=== PATIENT | male | born 1955 | race Caucasian/White ===

== ENCOUNTER 2018-11-19 05:39 | Inpatient (IN) ==
[2018-11-13 10:52] LABS: Basophils # 0.1 10*3/uL (0.0-0.2); Basophils % 0.7 % (0.0-0.8); Eosinophils # 0.2 10*3/uL (0.0-0.87); Eosinophils % 3.2 % (0.00-10.9); Hematocrit 48.1 VOL% (42.0-52.0); Immature Granulocytes % 0.3 %; Immature Granulocytes Absolute 0.02 #; Lymphocytes # 2.2 10*3/uL (1.4-4.0); Lymphocytes % 29.2 % (21.2-54.2); Mean Corpuscular HGB Conc 33.3 GM/DL (32-36); Mean Corpuscular Hemoglobin 30 PG (27-34); Mean Corpuscular Volume 90.4 FL (87-102); Mean Platelet Volume 9.6 FL (9.6-12.0); Monocytes # 0.7 10*3/uL (0.11-0.8); Monocytes % 9.4 % (1.7-12.7); Neutrophils # 4.3 10*3/uL (1.4-7.4); Neutrophils % 57.2 % (38.7-73.9); Platelet Count 202 T/CUMM (130-400); Red Blood Count 5.32 MC/CUMM (3.8-5.5); Red Cell Distribution Width 13.4 % (9.3-17.3); White Blood Count 7.4 T/CUMM (4-12)
[2018-11-13 11:03] LABS: PT Patient Result 10.7 SECS; Partial Thromboplastin Time 24.8 SECS (0-40)
[2018-11-13 11:07] LABS: Apearance,Urine Slightly Hazy (Clear); Bilirubin,Urine Negative (Negative); Blood, Urine Negative (Negative); Glucose,Urine (UA) Negative (Negative); Ketones,Urine Negative (Negative); Nitrite,Urine Negative (Negative); Protein,Urine Negative; RBC,Urine <1 /HPF (0-4); Squamous Epithelial Cell,Urine Occasional /HPF (0-10); Urine Color Yellow (Yellow); Urine Urobilinogen < 2.0 EU/DL (0.2-1.0); WBC,Urine 1 /HPF (0-6)
[2018-11-13 11:30] LABS: Albumin 3.9 G/DL (3.4-5.0); Bilirubin,Total 0.8 MG/DL (0.2-1.0); Calcium 9.1 MG/DL (8.5-10.1); Osmolality,Calculated 278.5 MOS/KG (273-304); Potassium 3.9 MMOL/L (3.5-5.1); Total Protein 7.1 G/DL (6.4-8.3)
[2018-11-19] MEDS ORDERED: FAMOTIDINE 20 MG TABLET PO ONE (05:52)
[2018-11-19] MEDS ORDERED: VANCOMYCIN INJ 1,000 MG in SODIUM CHLORIDE 0.9% 250 ML IV ONE (06:00)
[2018-11-19] MEDS ORDERED: ceFAZolin 2,000 MG in PREMIX 1 EACH IV ONE (06:00)
[2018-11-19] MEDS ORDERED: LACTATED RINGERS 1,000 ML IV SCH (06:00)
[2018-11-19] MEDS ORDERED: FAMOTIDINE 20 MG TABLET ONE (06:09)
[2018-11-19] MEDS ORDERED: VANCOMYCIN 1,000 MG VIAL ONE (06:09)
[2018-11-19] MEDS ORDERED: PROPOFOL 1,000 MG/100 ML BOTTLE IV ONE (06:12)
[2018-11-19] MEDS ORDERED: TRANEXAMIC ACID 1,000 MG/10 ML VIAL ONE (06:34)
[2018-11-19] MEDS ORDERED: BACITRACIN OINT 0.9 GM PACK TOP ONE (08:22)
[2018-11-19] MEDS ORDERED: MAGNESIUM HYDROXIDE SUSP 30 ML UDCUP PO PRN (08:49)
[2018-11-19] MEDS ORDERED: oxyCODONE IR 5 MG TABLET PO PRN ×2 (08:49)
[2018-11-19] MEDS ORDERED: ZALEPLON 5 MG CAPSULE PO PRN (08:49)
[2018-11-19] MEDS ORDERED: MORPHINE 4 MG/1 ML VIAL IV PRN ×2 (08:49)
[2018-11-19] MEDS ORDERED: diphenhydrAMINE CAP 25 MG CAPSULE PO PRN (08:49)
[2018-11-19] MEDS ORDERED: ONDANSETRON 4 MG/2 ML VIAL IV PRN (08:49)
[2018-11-19] MEDS ORDERED: LIDOCAINE 2% 20 ML VIAL ONE (08:55)
[2018-11-19] MEDS ORDERED: ROPIVACAINE 0.5% 30 ML VIAL ONE (08:55)
[2018-11-19 08:58] LABS: Apearance,Urine CLEAR (Clear); Bilirubin,Urine Negative (Negative); Blood, Urine Negative (Negative); Glucose,Urine (UA) Negative (Negative); Ketones,Urine Negative (Negative); Mucus,Urine Occasional /LPF (Occasional); Nitrite,Urine Negative (Negative); Protein,Urine Negative; RBC,Urine 1 /HPF (0-4); Urine Color Yellow (Yellow); Urine Urobilinogen < 2.0 EU/DL (0.2-1.0)
[2018-11-19] MEDS ORDERED: PHENYLEPHRINE 10 MG/1 ML VIAL IV ONE (09:00)
[2018-11-19] MEDS ORDERED: PHENYLEPHRINE 1 MG/10 ML SYRINGE IV ONE (09:00)
[2018-11-19] MEDS ORDERED: fentaNYL 100 MCG/2 ML VIAL ONE (09:00)
[2018-11-19] MEDS ORDERED: LACTATED RINGERS 1,000 ML IV ONE (09:00)
[2018-11-19] MEDS ORDERED: SODIUM CHLORIDE 0.9% 200 ML IV ONE (09:00)
[2018-11-19] MEDS ORDERED: MIDAZOLAM 2 MG/2 ML VIAL ONE (09:00)
[2018-11-19] MEDS: DOCUSATE SODIUM 100 MG CAPSULE PO SCH ×2 (10:16→20:40)
[2018-11-19] MEDS: KETOROLAC 30 MG/1 ML VIAL IV SCH ×3 (10:16→21:58)
[2018-11-19] MEDS: LACTATED RINGERS 1,000 ML IV SCH ×2 (10:17→19:05)
[2018-11-19] MEDS: ACETAMINOPHEN 500 MG TABLET PO SCH ×2 (13:26→19:07)
[2018-11-19] MEDS: ceFAZolin 2,000 MG in PREMIX 1 EACH IV SCH ×2 (13:28→21:58)
[2018-11-20] MEDS: ACETAMINOPHEN 500 MG TABLET PO SCH ×2 (00:38→06:19)
[2018-11-20] MEDS: LACTATED RINGERS 1,000 ML IV SCH (02:49)
[2018-11-20] MEDS: KETOROLAC 30 MG/1 ML VIAL IV SCH (04:23)
[2018-11-20] MEDS ORDERED: FONDAPARINUX 2.5 MG/0.5 ML SYRINGE SUBCUT SCH (05:00)
[2018-11-20 05:20] LABS: Basophils % 0.5 % (0.0-0.8); Eosinophils # 0.1 10*3/uL (0.0-0.87); Eosinophils % 1.4 % (0.00-10.9); Hematocrit 39.4 VOL% (42.0-52.0); Hemoglobin 12.9 GM/DL (14.0-18.0); Immature Granulocytes % 0.3 %; Immature Granulocytes Absolute 0.02 #; Lymphocytes # 2.1 10*3/uL (1.4-4.0); Lymphocytes % 26.3 % (21.2-54.2); Mean Corpuscular HGB Conc 32.7 GM/DL (32-36); Mean Corpuscular Hemoglobin 30 PG (27-34); Mean Corpuscular Volume 90.8 FL (87-102); Mean Platelet Volume 10.1 FL (9.6-12.0); Monocytes # 0.9 10*3/uL (0.11-0.8); Monocytes % 11.7 % (1.7-12.7); Neutrophils # 4.7 10*3/uL (1.4-7.4); Neutrophils % 59.8 % (38.7-73.9); Platelet Count 134 T/CUMM (130-400); Red Blood Count 4.34 MC/CUMM (3.8-5.5); Red Cell Distribution Width 13.2 % (9.3-17.3); White Blood Count 7.8 T/CUMM (4-12)
[2018-11-20 05:39] LABS: Osmolality,Calculated 277.5 MOS/KG (273-304)
[2018-11-20] MEDS: DOCUSATE SODIUM 100 MG CAPSULE PO SCH (09:24)
[2018-11-20 11:35] VITALS: BP 141/74
[2018-11-20] MEDS ORDERED: CELECOXIB 200 MG CAPSULE PO SCH (14:50)
== END 2018-11-20 13:00 | disposition home or self-care (01) | DRG 470 ==
LOC: N.OR 05:39 → N.SDSINP 05:41 → N.3E 09:49
PROVIDERS: ADMIT Orthopaedic Surgery; ATTEND Orthopaedic Surgery